=== PATIENT | female | born 1960 | race Caucasian/White ===

== ENCOUNTER 2017-07-29 12:33 | Emergency (ER) | payer BC ==
--- OUTSIDE RECORDS SUMMARY | 2017-07-29 17:35 | XMS REPORT ---
:1960 External Reference #:[id number] Author Organization [employer] [facility] Address [address] [place] [address] Phone [phone] Care Team Providers Name Role Phone Tai Selma Primary Care Physician Unavailable Payers Type Date Identification Numbers Payment Provider Subscriber Commercial Effective: Policy Number: Angeline Norton 2010 [id number] [facility] Expires: 2012 PayID: [id number] [address] [address] [place] [address] Medigap Part B Effective: Policy Number: Angeline Norton 2012 [id number] [facility] PayID: [id number] [address] [address] [place] [address] Problems Date Description Provider Status Onset: 10/03/2011 Vaginitis and vulvovaginitis Makenzie Traore NP Active Onset: 10/03/2011 Vulval intraepithelial neoplasia grade Marsha Bello MD Active 1 Onset: 10/03/2011 Genital warts Marsha Bello MD Active Family History Date Family Member(s) Problem(s) Comments : Father due to lymphoma (2006) Mother Breast Cancer diagnosed approx 65, now 83yo (2018) Mother Arthritis Mother Hypertension Mother Hypercholesterolemia Number of Children 1 First Daughter A&W Number of Siblings Siblings: 1 First Brother Colon Cancer diagnosed at age 45 First Brother Rectal Cancer First Brother Covarrubias Syndrome Paternal Grandfather due to Unknown Causes () Paternal Grandmother due to Unknown Causes () Maternal Grandfather due to Unknown Causes () Maternal Grandmother due to Unknown Causes () Paternal Aunts Ovarian Cancer Social History Type Date Description Comments Education Highest level of education completed is a master's degree Marital Status Patient is Living Situation Lives with spouse and daughter Pets There are no pets in the home Occupation [employer] Cigarette Use Never smoked cigarettes Alcohol Drinks alcohol occasionally Smoking Patient has never smoked Drug Use Denies drug use Daily Caffeine Drinks on average 1 cup of coffee a day Exercise Type/Frequency Current Exercises sporadically Seat Belt/Car Seat Always uses a seat belt Currently Active The patient is currently sexually active Contraceptive Methods Does not currently use any method of control Allergies, Adverse Reactions, Alerts Date Description Reaction Status Severity Comments 09/02/2008 Sulfa active 04/26/2011 Compazine active 11/22/2011 Flagyl active Medications Medication Date Status Form Strength Qnty SIG Indications Ordering Provider Imiquimod 04/18 Active Cream 5% 72uni apply to ts area 3x Ace, per week for 12 weeks Vagifem 07/10 Active Tablets 10mcg 24tab one tab s per Ace vagina every night at bedtime 2x/week Lansoprazole 08/22 Active Suspension 30mg Varn Selma Dexilant 03/30 Active 60mg MD Ace Xyzal Active 5mg Unknown /0000 Mucinex Active 1200mg Unknown / Atenolol Active 25mg 1 po bid Unknown / Losartan Potassium Active Tablets 100mg 1 po qd Unknown / Qvar Active 80mcg Unknown /0000 Dymista Active Unknown /0000 Fluvoxamine Active 50mg Unknown Maleate /0000 Baby Aspirin Active 81mg Unknown /0000 Alprazolam Active .25mg Unknown / Spiriva Respimat Active Unknown /0000 Symbicort Active Aerosol 160-4.5mc 2 puff by Unknown /0000 g/Act mouth twice a day Vitamin D3 Super Active Capsules 2000Unit Unknown Strength /0000 Biotin Active Capsules 5000mcg once Unknown /0000 daily Coq10 Active Unknown /0000 Flax Seed Oil Active Unknown /0000 Vitamin B12 Active Tablets ER 1000mcg 1 by Unknown /0000 mouth every day Atorvastatin Active Unknown Calcium 0000 Hydrochlorothiazid Active Unknown e /0000 Potassium Active Unknown /0000 Fluconazole 02/16 Hx Tablets 150mg 2tabs 1 tablet by mouth, Sean, - repeat in [facility] 02/21 2 days needed Diflucan 06/26 Hx Tablets 100mg 28tab take 1 s tablet by Ace, - mouth two 07/25 times day for 14 days Diflucan 05/13 Hx Tablets 150mg 2tabs take 1 tab. now, Ace, - if 06/26 signs/sym ptoms not resolved in 72 hours, repeat dose Nystatin/Triamcino 05/13 Hx Cream 775400-6. 15gms use tid Rodrigo Dumont 1Unit/GM- to Shekhar, - % affected M.D. 06/26 area pr Flagyl 10/05 Hx Tablets 500mg 14tab 1 po bid s x 7 days Ace, - 11/21 Diflucan 10/03 Hx Tablets 100mg 6tabs take 2 tabs now. Ace, - take 1 11/21 tab qd for 4 days Symbicort 08/22 Hx Aerosol 160-4.5mc Varn g/Act Selma - 05/28 Diflucan 08/22 Hx Tablets 150mg 2tabs take 1 tab. now, Ace, - if 10/02 signs/sym ptoms not resolved in 72 hours, repeat dose Nystatin/Triamcino 08/22 Hx Cream 371240-5. 15gms use tid Marsha 1Unit/GM- to Ace, - % affected 05/28 area pr Tramadol HCL 03/30 Hx Tablets 50mg as needed Ace, - 05/28 Kariva 03/30 Hx Tablets 0.15-0.02 84tab take 1 /0.01 mg s tablet by Ace, - (2 mouth 05/28 once daily Aldara 09/07 Hx Cream 5% 12uni Apply To ts Area 3X Real Bello Per Week 05/28 At Night , Wash Off In Am Aciphex 09/[address] 20mg Marsha Real Bello MD 07/24 Alvesco / Hx Unknown / - 06/18 Nasonex / Hx Unknown / - 05/28 HCTZ Hx 25mg - 07/05 Potassimin Hx 16Meq - 07/05 Prevacid / Hx Unknown / - 06/18 Lunesta Hx Tablets 1mg - 07/29 Luvox CR Hx Caps ER 50mg 24HR - 06/26 Co Q-10 Maximum Hx Unknown Strength - 08/28 Symbicort 00/ Hx - 07/19 Fluconazole 00 Hx 150mg Unknown - 01/25 Gabapentin Hx Unknown - 08/28 Medications Administered in Office Medication Date Status Form Strength Qnty SIG Indications Ordering Provider PT SCRN Tbco Administered Injection Dvorah Id as Non User 018 Garry Damon Vital Signs Date Vital Result Comment 07/05/2017 BP Systolic 120 mmHg BP Diastolic 80 mmHg Height 63 inches 5'3" Weight 172.00 lb BMI (Body Mass Index) 30.5 kg/m2 Last Menstrual Period 5336854 3 Parity 1 08/28/2016 BP Systolic 126 mmHg BP Diastolic 78 mmHg Height 63 inches 5'3" Weight 171.00 lb BMI (Body Mass Index) 30.3 kg/m2 Last Menstrual Period 0616020 3 Parity 1 05/30/2016 BP Systolic 130 mmHg BP Diastolic 78 mmHg Height 63 inches 5'3" Weight 164.00 lb BMI (Body Mass Index) 29.0 kg/m2 Last Menstrual Period 0934464 3 Parity 1 05/16/2016 BP Systolic 126 mmHg BP Diastolic 82 mmHg Height 63 inches 5'3" Weight 162.00 lb BMI (Body Mass Index) 28.7 kg/m2 Last Menstrual Period 9623546 3 Parity 1 04/18/2016 BP Systolic 118 mmHg BP Diastolic 72 mmHg Height 63 inches 5'3" Weight 159.00 lb BMI (Body Mass Index) 28.2 kg/m2 Last Menstrual Period 9768362 3 Parity 1 08/17/2015 BP Systolic 126 mmHg BP Diastolic 74 mmHg Height 63 inches 5'3" Weight 187.00 lb BMI (Body Mass Index) 33.1 kg/m2 Last Menstrual Period 9394790 3 Parity 1 01/25/2015 BP Systolic 124 mmHg BP Diastolic 78 mmHg Height 63 inches 5'3" Weight 182.00 lb BMI (Body Mass Index) 32.2 kg/m2 Last Menstrual Period 8529903 3 Parity 1 10/13/2014 BP Systolic 124 mmHg BP Diastolic 76 mmHg Height 63 inches 5'3" Last Menstrual Period 2791033 3 Parity 1 07/10/2014 BP Systolic 118 mmHg BP Diastolic 76 mmHg Height 63 inches 5'3" Weight 181.00 lb BMI (Body Mass Index) 32.1 kg/m2 Last Menstrual Period 8993767 3 Parity 1 01/05/2014 BP Systolic 112 mmHg BP Diastolic 76 mmHg Height 63 inches 5'3" Weight 170.00 lb BMI (Body Mass Index) 30.1 kg/m2 Last Menstrual Period 2494889 3 Parity 1 12/22/2013 BP Systolic 124 mmHg BP Diastolic 86 mmHg Height 63 inches 5'3" Weight 168.00 lb BMI (Body Mass Index) 29.8 kg/m2 Last Menstrual Period 3562724 3 Parity 1 06/26/2013 BP Systolic 118 mmHg BP Diastolic 74 mmHg Height 63 inches 5'3" Weight 163.00 lb BMI (Body Mass Index) 28.9 kg/m2 Last Menstrual Period 1331701 3 Parity 1 05/13/2013 BP Systolic 122 mmHg BP Diastolic 80 mmHg Height 64.5 inches 5'4.50" Weight 166.00 lb BMI (Body Mass Index) 28.1 kg/m2 Last Menstrual Period 0480338 3 Parity 1 04/29/2013 BP Systolic 118 mmHg BP Diastolic 74 mmHg Height 64.5 inches 5'4.50" Weight 166.00 lb BMI (Body Mass Index) 28.1 kg/m2 Last Menstrual Period 0080767 3 Parity 1 02/06/2013 BP Systolic 130 mmHg BP Diastolic 84 mmHg Height 64.5 inches 5'4.50" Weight 173.00 lb BMI (Body Mass Index) 29.2 kg/m2 3 Parity 1 05/28/2012 BP Systolic 120 mmHg BP Diastolic 68 mmHg Height 64.5 inches 5'4.50" Weight 181.00 lb BMI (Body Mass Index) 30.6 kg/m2 Last Menstrual Period 7446059 3 Parity 1 11/22/2011 BP Systolic 112 mmHg BP Diastolic 72 mmHg Height 62.5 inches 5'2.50" Weight 170.00 lb BMI (Body Mass Index) 30.6 kg/m2 Last Menstrual Period 1655905 3 Parity 1 10/04/2011 BP Systolic 120 mmHg BP Diastolic 66 mmHg Height 62.5 inches 5'2.50" Weight 173.00 lb BMI (Body Mass Index) 31.1 kg/m2 Last Menstrual Period 0229121 08/23/2011 BP Systolic 126 mmHg BP Diastolic 78 mmHg Height 62.5 inches 5'2.50" Weight 171.00 lb BMI (Body Mass Index) 30.8 kg/m2 04/26/2011 BP Systolic 140 mmHg BP Diastolic 90 mmHg Respiratory Rate 62.5 /min Height 174 inches 14'6" Last Menstrual Period 9532314 3 Parity 1 09/14/2010 BP Systolic 120 mmHg BP Diastolic 70 mmHg Height 63.5 inches 5'3.50" Weight 181.00 lb BMI (Body Mass Index) 31.6 kg/m2 08/03/2010 BP Systolic 140 mmHg BP Diastolic 80 mmHg Height 63.5 inches 5'3.50" Weight 180.00 lb BMI (Body Mass Index) 31.4 kg/m2 Last Menstrual Period 3202063 3 Parity 1 03/30/2010 BP Systolic 120 mmHg BP Diastolic 80 mmHg Height 63.5 inches 5'3.50" Weight 176.00 lb BMI (Body Mass Index) 30.7 kg/m2 Last Menstrual Period 4258879 04/29/2009 BP Systolic 130 mmHg BP Diastolic 70 mmHg Height 63.5 inches 5'3.50" Weight 180.00 lb BMI (Body Mass Index) 31.4 kg/m2 Last Menstrual Period 0106193 3 Parity 1 12/08/2008 BP Systolic 132 mmHg BP Diastolic 78 mmHg Weight 181.00 lb 09/02/2008 BP Systolic 144 mmHg BP Diastolic 88 mmHg Height 63.75 inches 5'3.75" Weight 182.00 lb BMI (Body Mass Index) 31.5 kg/m2 Last Menstrual Period 2922067 3 Parity 1 Results Test Date Test Result H/L Range Note Laboratory test finding 08/28/2016 Cytology SEE RESULT BELOW 1 Human Papilloma Virus Rna Negative Negative 2 Laboratory test finding 05/16/2016 Surgical Pathology SEE RESULT BELOW 3 Laboratory test finding 08/17/2015 Cytology SEE RESULT BELOW 4 Human Papilloma Virus Rna Negative Negative 5 Laboratory test finding 07/10/2014 Cytology RUN DATE: <SEE NOTE&gt ; 6 Human Papilloma Virus Rna Negative Negative 7 Laboratory test finding 01/05/2014 Surgical Pathology RUN DATE: <SEE NOTE> Laboratory test finding 06/26/2013 Genital Culture (SEE NOTE) 9 Laboratory test finding 06/26/2013 Cytology RUN DATE: <SEE NOTE> Laboratory test finding 02/10/2013 Clotest (SEE NOTE) 11 Laboratory test finding 05/28/2012 Follicle Stimulating 59.99 MIU/ML 12 Hormone Laboratory test finding 05/28/2012 Cytology RUN DATE: <SEE NOTE> Laboratory test finding 10/04/2011 Genital Culture 14 <SEE NOTE> Laboratory test finding 04/26/2011 Cytology 15 <SEE NOTE> Laboratory test finding 04/22/2010 FSH 8.37 MIU/ML 16 Laboratory test finding 03/30/2010 Cytology 17 <SEE NOTE> Laboratory test finding 04/29/2009 Surgical Pathology 18 <SEE NOTE> Laboratory test finding 12/08/2008 Surgical Pathology 19 <SEE NOTE> Laboratory test finding 09/02/2008 Surgical Pathology 20 <SEE NOTE> 1 SEE RESULT BELOW Name: DANIELLE NORTON : [address]: Marsha Bello MD Acct: [id number] Unit: [id number] AGE: 55 Location: [facility] Re08/28/16 SEX: F Status: REG REF SPEC: [id number] CHARITY: 08/28/16-[address]: Marsha Bello MD REQ: [id number] RECD: 08/28/16 STATUS: SOUT _ ORDERED: IMAGE ANALYSIS, HPV/Thin Prep COMMENTS: [id number] FINAL DIAGNOSIS Negative for Intraepithelial lesion or Malignancy A. Ectocervical/Endocervical Specimen Adequacy: Satisfactory of evaluation Transformation zone component not identified Patient Information: HPV: High risk HPV RNA testing regardless of pap results. Actual Specimen Date: 08/28/16 Last Menstrual Date: 06/18/13 Date of Last Specimen: 08/17/15 Post Menopausal?: Y Date Time Test Result Flag (u) Normal Range 08/28/16 1306 HPV RNA Negative Negative The high-risk HPV types detected by the assay include: 16, 18, 31, 33, 35, 39, 45, 51, 52, 56, 58, 59, 66, and 68. Signed (signature on file) SHABBIR Roberts (ASCP) 08/31 0800 This Pap test was evaluated with the assistance of the [employer] Test Imaging System. Due to cytologic findings at the edge banding off bearer microscope, comprehensive manual rescreening by a Label Remover may be required. The Pap Smear is a screening test designed to aid in the detection of premalignant and malignant conditions of the uterine cervix. It is not a diagnostic procedure and should not be used as the sole means of detecting cervical cancer. Both false- positive and false- negative reports do occur. Depending on your risk status, a Pap smear should be obtained and evaluated every 1-3 years. END OF REPORT * ML=Testing performed at Main Lab DEPARTMENT OF PATHOLOGY, [address] [place] [address] Williams Winter M.D. Director [facility] # [id number] 2 The high-risk HPV types detected by the assay include: 16, 18, 31, 33, 35, 39, 45, 51, 52, 56, 58, 59, 66, and 68. 3 SEE RESULT BELOW Name: DANIELLE NORTON : [address]: Marsha Bello MD Acct: [id number] Unit: [id number] AGE: 55 Location: [facility] Re05/16/16 SEX: F Status: REG REF SPEC: [id number] CHARITY: 05/16/16-1325 [facility] DR: Marsha Bello MD REQ: [id number] RECD: 05/16/16 STATUS: SOUT _ ORDERED: LEVEL IV COMMENTS: [id number] FINAL DIAGNOSIS Skin, labia, biopsy: -- Condyloma. PRE-OPERATIVE DIAGNOSIS Genital wart GROSS DESCRIPTION The specimen is received in formalin labeled, Lesion Biopsy, and consists of a 0.6 x 0.4 x 0.4 cm river-quintana irregular focally papillary and hairbearing skin fragment. The specimen is inked, bisected and submitted entirely in one cassette. Signed (signature on file) Williams Winter MD 1049 END OF REPORT * ML=Testing performed at Main Lab DEPARTMENT OF PATHOLOGY, [address] [place] [address] Williams Winter M.D. Director [facility] # [id number] 4 SEE RESULT BELOW Name: DANIELLE NORTON : [address]: Marsha Bello MD Acct: [id number] Unit: [id number] AGE: 54 Location: [facility] Re08/17/15 SEX: F Status: REG REF SPEC: [id number] CHARITY: 08/17/15-0951 [facility] DR: Marsha Bello MD REQ: [id number] RECD: 08/17/15 STATUS: SOUT _ ORDERED: IMAGE ANALYSIS, HPV/Thin Prep FINAL DIAGNOSIS Negative for Intraepithelial lesion or Malignancy A. Ectocervical/Endocervical Specimen Adequacy: Satisfactory of evaluation Transformation zone component not identified Patient Information: HPV: High risk HPV RNA testing regardless of pap results. Actual Specimen Date: 08/17/15 Last Menstrual Date: 12/10/13 Date of Last Specimen: 07/10/14 Post Menopausal?: Y Date Time Test Result Flag (u) Normal Range 08/17/15 0951 HPV RNA Negative Negative The high-risk HPV types detected by the assay include: 16, 18, 31, 33, 35, 39, 45, 51, 52, 56, 58, 59, 66, and 68. Signed (signature on file) SHABBIR Sandoval(ASCP) 08/17 1321 This Pap test was evaluated with the assistance of the [employer] Test Imaging System. Due to cytologic findings at the edge banding off bearer microscope, comprehensive manual rescreening by a Label Remover may be required. The Pap Smear is a screening test designed to aid in the detection of premalignant and malignant conditions of the uterine cervix. It is not a diagnostic procedure and should not be used as the sole means of detecting cervical cancer. Both false- positive and false- negative reports do occur. Depending on your risk status, a Pap smear should be obtained and evaluated every 1-3 years. END OF REPORT * ML=Testing performed at [facility] Lab DEPARTMENT OF PATHOLOGY, [address] [place] [address] Williams Winter M.D. Director [facility] # [id number] 5 The high-risk HPV types detected by the assay include: 16, 18, 31, 33, 35, 39, 45, 51, 52, 56, 58, 59, 66, and 68. 6 RUN DATE: 07/14/14 [facility] LAB LIVE PAGE 1 RUN TIME: [address] [place], [place] [address] Specimen Inquiry Name: DANIELLE NORTON : [address]: Marsha Bello MD Acct: [id number] Unit: [id number] AGE: 53 Location: [facility] Re07/10/14 SEX: F Status: REG REF SPEC: [id number] CHARITY: 07/10/14-1516 [facility] DR: Marsha Bello MD REQ: [id number] RECD: 07/13/14-492 STATUS: SOUT _ ORDERED: IMAGE ANALYSIS, HPV/Thin Prep FINAL DIAGNOSIS Negative for Intraepithelial lesion or Malignancy A. Ectocervical/Endocervical Specimen Adequacy: Satisfactory of evaluation Transformation zone component identified Patient Information: HPV: High risk HPV RNA testing regardless of pap results. Actual Specimen Date: 07/10/14 Last Menstrual Date: 12/10/13 Date of Last Specimen: 06/26/13 Date Time Test Result Flag (u) Normal Range 07/10/14 1516 HPV RNA Negative Negative The high-risk HPV types detected by the assay include: 16, 18, 31, 33, 35, 39, 45, 51, 52, 56, 58, 59, 66, and 68. Signed (signature on file) SHABBIR Brunner(ASCP) 1307 This Pap test was evaluated with the assistance of the [employer] Test Imaging System. Due to cytologic findings at the edge banding off bearer microscope, comprehensive manual rescreening by a Label Remover may be required. The Pap Smear is a screening test designed to aid in the detection of premalignant and malignant conditions of the uterine cervix. It is not a diagnostic procedure and should not be used as the sole means of detecting cervical cancer. Both false- positive and false- negative reports do occur. Depending on your risk status, a Pap smear should be obtained and evaluated every 1-3 years. END OF REPORT * ML=Testing performed at Main Lab DEPARTMENT OF PATHOLOGY, [address] [place] [address] Williams Winter M.D. Director [facility] # [id number] 7 The high-risk HPV types detected by the assay include: 16, 18, 31, 33, 35, 39, 45, 51, 52, 56, 58, 59, 66, and 68. 8 RUN DATE: 01/07/14 [facility] [place] [facility] LAB LIVE PAGE 1 RUN TIME: [address] [place] [address] Specimen Inquiry Name: DANIELLE NORTON : [address]: Marsha Bello MD Acct: [id number] Unit: [id number] AGE: 53 Location: [facility] Re01/05/14 SEX: F Status: REG REF SPEC: [id number] CHARITY: 01/05/14-0935 [facility] DR: Marsha Bello MD REQ: [id number] RECD: 01/05/14 STATUS: SOUT _ ORDERED: LEVEL IV FINAL DIAGNOSIS Uterus, endometrium, biopsy: A. Inactive endometrial mucosa with focal tubal metaplasia and stromal breakdown. B. No evidence of hyperplasia or neoplasia. PRE-OPERATIVE DIAGNOSIS Dysfunctional uterine bleeding GROSS DESCRIPTION The specimen is received in formalin labeled ELVIS Maza and consists of a 1.0 x 0.8 x 0.3 cm. aggregate of predominantly river-brown mucus mixed with scant river soft tissue fragments. The specimen is filtered and submitted entirely, one cassette. Signed (signature on file) Gwendolyn Pablo MD 1545 END OF REPORT * ML=Testing performed at Main Lab DEPARTMENT OF PATHOLOGY, [facility] [employer] [place] [address] Williams Winter M.D. Director [facility] # [id number] RUN DATE: 06/28/13 [facility] [place] [facility] LAB LIVE PAGE 1 RUN TIME: [address] [place] [address] Specimen Inquiry Name: DANIELLE NORTON : [address]: Marsha Bello MD Acct: [id number] Unit: [id number] AGE: 52 Location: [facility] Re06/26/13 SEX: F Status: REG REF SPEC: [id number] CHARITY: 06/26/13-1153 [facility] DR: Marsha Bello MD REQ: [id number] RECD: 06/26/13 STATUS: COMP _ SOURCE: VAGINAL SPDESC: ORDERED: Genital Culture QUERIES: Medent Number [id number] Procedure Result Verified Site Genital Culture Final 06/28/13- 1056 ML Organism 1 NORMAL SIXTO Quantity 2+ END OF REPORT * ML=Testing performed at Main Lab DEPARTMENT OF PATHOLOGY, [facility] [employer] [place], [place] [address] Williams Winter M.D. Director [facility] Permit #[id number] 10 RUN DATE: 06/27/13 [facility] [place] [facility] LAB LIVE PAGE 1 RUN TIME: 1320 [facility] [employer] [place], [place] [address] Specimen Inquiry Name: DANIELLE NORTON : [address]: Marsha Bello MD Acct: [id number] Unit: [id number] AGE: 52 Location: [facility] Re06/26/13 SEX: F Status: REG REF SPEC: [id number] CHARITY: 06/26/13-1226 [facility] DR: Marsha Bello MD REQ: [id number] RECD: 06/26/13-9709 STATUS: SOUT _ ORDERED: IMAGE ANALYSIS FINAL DIAGNOSIS Negative for Intraepithelial lesion or Malignancy A. Ectocervical/Endocervical Specimen Adequacy: Satisfactory of evaluation Transformation zone component identified Patient Information: HPV: Thin Layer Pap Test w/reflex to high risk HPV DNA testing when ASCUS Actual Specimen Date: 06/26/13 Last Menstrual Date: 12/12/12 Date of Last Specimen: 05/28/12 Signed (signature on file) SHABBIR Roberts (ASCP) 06/27 1320 This Pap test was evaluated with the assistance of the [employer] Test Imaging System. Due to cytologic findings at the edge banding off bearer microscope, comprehensive manual rescreening by a Label Remover may be required. The Pap Smear is a screening test designed to aid in the detection of premalignant and malignant conditions of the uterine cervix. It is not a diagnostic procedure and should not be used as the sole means of detecting cervical cancer. Both false- positive and false- negative reports do occur. Depending on your risk status, a Pap smear shoudl be obtained and evaluated every 1-3 years. END OF REPORT * ML=Testing performed at Main Lab DEPARTMENT OF PATHOLOGY, [facility] [employer] [place] [address] Williams Winter M.D. Director [facility] Permit #[id number] 11 RUN DATE: 02/11/13 [facility] [place] [facility] LAB LIVE PAGE 1 RUN TIME: 0839 [facility] [employer] [place], [place] [address] Specimen Inquiry Name: IWONA NORTONJorje Dial : [address]: Ty Tucker MD Acct: [id number] Unit: [id number] AGE: 52 Location: ENDO Re02/10/13 SEX: F Status: REG REF SPEC: [id number] CHARITY: 02/10/13-[address]: Ty Tucker MD REQ: [id number] RECD: 02/10/13-3 STATUS: SHAWN THOMPSON DR: Marsha Lujan [employer] _ SOURCE: NELY DAVIS [facility]: ORDERED: Clotest Procedure Result Verified Site Clotest Final 02/11/13- 837 ML Clotest Negative END OF REPORT * ML=Testing performed at Main Lab DEPARTMENT OF PATHOLOGY, [facility] [employer] [place], [place] [address] Williams Winter M.D. Director [facility] Permit #[id number] 12 Normally menstruating females - Follicular phase 3 - 9 - Mid-cycle peak 4 - 23 - Luteal phase 1 - 6 Postmenopausal females 16 - 114 13 RUN DATE: 05/29/12 [facility] [place] [facility] LAB LIVE PAGE 1 RUN TIME: 7448 [facility] [employer] [place], [place] [address] Specimen Inquiry Name: DANIELLE NORTON : [address]: Marsha Bello MD Acct: [id number] Unit: [id number] AGE: 51 Location: [facility] Re05/28/12 SEX: F Status: REG REF SPEC: [id number] CHARITY: 05/28/[address]: Marsha Bello MD REQ: [id number] RECD: 05/29/12 STATUS: SOUT _ ORDERED: IMAGE ANALYSIS Negative for Intraepithelial lesion or Malignancy A. Ectocervical/Endocervical Specimen Adequacy: Satisfactory of evaluation Transformation zone component identified Patient Information: HPV: Thin Layer Pap Test w/reflex to high risk HPV DNA testing when ASCUS Actual Specimen Date: 05/28/12 Last Menstrual Date: 12/20/11 Date of Last Specimen: 04/26/11 ?: N Post Menopausal?: N Hysterectomy?: N Previous Abnormal Pap Smears?:Y If Yes, enter Diagnosis: Atypical Squamous cells of uncertain significance. HPV Lo risk Signed (signature on file) SHABBIR Roberts (ASCP) 05/29 2874 This Pap test was evaluated with the assistance of the [employer] Test Imaging System. Due to cytologic findings at the edge banding off bearer microscope, comprehensive manual rescreening by a Label Remover may be required. The Pap Smear is a screening test designed to aid in the detection of premalignant and malignant conditions of the uterine cervix. It is not a diagnostic procedure and should not be used as the sole means of detecting cervical cancer. Both false- positive and false- negative reports do occur. Depending on your risk status, a Pap smear shoudl be obtained and evaluated every 1-3 years. END OF REPORT * ML=Testing performed at Main Lab DEPARTMENT OF PATHOLOGY, [address] [place] [address] Williams Winter M.D. Director [facility] Permit #[id number] RUN DATE: 10/06/11 [facility] NMI LIVE PAGE 1 RUN TIME: 1005 Specimen Inquiry RUN USER: INTERFACE Name: NORTONDANIELLEJorje Aj#: [id number] Status: REG REF Re10/04/11 Age/Sex: 51/F Unit#: [id number] Location: [facility] : 64 SPEC #: [id number] CHARITY: 10/04/11 STATUS: COMP REQ #: [id number] RECD: 10/04/11 [facility] DR: León OSMAN,Makenzie SOURCE: GENITAL ENTR: 10/04/[address]: SPDES: SeeComment ORDERED: GENITAL CULTURE COMMENTS: Specimen Description: vaginal QUERIES: [employer] MEDENT REQUISITION # [id number] ACT WKST: B 10/06/11 #1 Procedure Result Verified Site > GENITAL CULTURE Final -1005 ML Organism 1 PRESUMPTIVE KIMMY. VAGINALIS QUANTITY MANY Organism 2 YEAST QUANTITY FEW Organism 3 NORMAL SIXTO QUANTITY MANY - [facility] Permit #[id number] [address] [place] [id number] DEPARTMENT OF PATHOLOGY, [address] [place] [id number] [facility] Permit #[id number] Garry Bland M.D. Joint Finisher 15 ---- RUN DATE: 04/27/11 [facility] NMI LIVE PAGE 1 RUN TIME: 1136 Specimen Inquiry RUN USER: INTERFACE -- Name: DANIELLE NORTON Status: REG REF Re04/26/11 Age/Sex: 50/F Unit#: [id number] Location: [facility] : 64 -- Specimen: [id number] SOUT Spec Date: 04/26/[address]: Marsha cheng MD Spec Type: CYTOLOGY Received: 04/26/11-1420 Copies to: SOURCE ECTOCERVICAL/ENDOCERVICAL Thin Prep with Reflex HPV Test PATIENT INFORMATION ACTUAL COLLECTION DATE: 04/26/11 ? No POST MENOPAUSAL? No LAST MENSTRUAL PERIOD: 04/13/10 DATE OF PRIOR SPECIMEN: 03/30/10 ADEQUACY OF SPECIMEN Satisfactory for evaluation * Transformation zone component identified * DIAGNOSIS NEGATIVE FOR INTRAEPITHELIAL LESION OR MALIGNANCY * This Pap test was evaluated with the assistance of the ThinPrep Pap Test Imaging System. The Pap Smear is a screening test designed to aid in the detection of premalign ant and malignant conditions of the uterine cervix. It is not a diagnostic procedure a nd should not be used as the sole means of detecting cervical cancer. Both false- positiv e and false-negative reports do occur. Depending on your risk status, a Pap smear michelle uld be obtained and evaluated every one to three years. Initial evaluation performed by Jayro ZUNIGA(ASCP) 04/27/11 Final Interpretation electronically signed by: Jayro ZUNIGA(ASCP) 04/27/11 5126 -- -- DEPARTMENT OF PATHOLOGY, [address] [place] [address] [facility] Permit #[id number] Garry Bland M.D. Nps Dir augusteor -- 16 NORMAL RANGE MALES 1 - 20 NORMALLY MENSTRUATING FEMALES - Follicular Phase 3 - 9 - Mid-Cycle Peak 4 - 23 - Luteal Phase 1 - 6 POSTMENOPAUSAL FEMALES 16 - 114 . 17 ---- RUN DATE: 04/04/10 [facility] NMI LIVE PAGE 1 RUN TIME: 825 Specimen Inquiry RUN USER: INTERFACE -- Name: IWONA NORTONJorje Dial Status: REG REF Re03/30/10 Age/Sex: 49/F Unit#: [id number] Location: [facility] : 64 -- Specimen: [id number] SOUT Spec Date: 03/30/[address]: Marsha cheng MD Spec Type: CYTOLOGY Received: 03/31/10-0856 Copies to: SOURCE ECTOCERVICAL/ENDOCERVICAL Thin Prep with Reflex HPV Test PATIENT INFORMATION ACTUAL COLLECTION DATE: 03/30/10 ? No LAST MENSTRUAL PERIOD: 03/24/10 ADEQUACY OF SPECIMEN Satisfactory for evaluation * Transformation zone component identified * DIAGNOSIS EPITHELIAL CELL ABNORMALITIES * Squamous cell * Atypical squamous cells * Of undetermined significance (ASC-US) * NOTE Specimen sent to [facility] in [place], [place] on 03/31/10 by DB at 1310. Results will be reported separately in an addendum. ADDENDUM Addendum #1 Entered: 04/04/10 Jet Human Papilloma Virus test results received with preparation and diagnosis completed by [facility], [place], [place]. Results: NEGATIVE High Risk (for types 16, 18, 31, 33, 35, 39, 45, 51, 52, 56, 58, 59, 68) This test was developed and its performance characteristics determined by Laboratory Medicine and Pathology, [facility], [place], [place]. It has not -- DEPARTMENT OF PATHOLOGY, [address] [place] [address] [facility] Permit #[id number] Garry Bland M.D. Nps Dir abdullahi -- -- RUN DATE: 04/04/10 [facility] NMI LIVE PAGE 2 RUN TIME: 825 Specimen Inquiry RUN USER: INTERFACE -- Name: DANIELLE NORTON Status: REG REF Re03/30/10 Age/Sex: 49/F Unit#: [id number] Location: [facility] : 64 -- -- CONTINUED -- ADDENDUM (Continued) been cleared or approved by the U.S. Food and Drug Administration. Test Performed by: [facility] Dpt of lab Med and Pathology [address] [place] [address] Wire Communications Engineer: Reginaldo Reyes III, M.D. Original hard copy report from [facility] is available upon request by calling Pathology at [phone]. Addendum Review Jayro ZUNIGA([facility]) 04/04/10 -- This Pap test was evaluated with the assistance of the ThinPrep Pap Test Imaging System. Due to cytologic findings at the edge banding off bearer microscope, comprehensive manual rescreening by a Label Remover was required. The Pap Smear is a screening test designed to aid in the detection of premalign ant and malignant conditions of the uterine cervix. It is not a diagnostic procedure a nd should not be used as the sole means of detecting cervical cancer. Both false- positiv e and false-negative reports do occur. Depending on your risk status, a Pap smear michelle uld be obtained and evaluated every one to three years. Initial evaluation performed by Roya RODRIGUEZ(ASCP) 03/31/10 Final Interpretation electronically signed by: CAROLIN ROSE 03/31/10 1439 -- -- DEPARTMENT OF PATHOLOGY, [address] [place] [address] [facility] Permit #[id number] Williams Winter M.D. Director Carolin Rose M.D. Nps abdullahi -- 18 ---- RUN DATE: 05/03/09 [facility] NMI LIVE PAGE 1 RUN TIME: 1259 Specimen Inquiry RUN USER: INTERFACE -- Name: DANIELLE NORTON Status: REG REF Re04/29/09 Age/Sex: 48/F Unit#: [id number] Location: [facility] : 64 -- Specimen: [id number] SOUT Spec Date: 04/29/[address]: Hilary chaves MD Spec Type: SURGICAL P Received: 04/30/09 Copies to: CYTOLOGY SPECIMEN VULVAR BIOPSY HISTORY PRE-OP DIAGNOSIS: TRINI I GROSS DESCRIPTION The specimen is received in formalin labelled Danielle Norton, Vulvar Biopsy, and consists of an irregular fragment of dark brown tissue measuring 0.6 x 0.5 x 0.4 cm. Submitted entirely, one cassette. DIAGNOSIS Vulva, biopsy: A) Low grade squamous intraepithelial lesion (TRINI I, condyloma). B) Background changes indicative of lichen simplex chronicus (see comment). COMMENT The skin fragment demonstrates focal areas of epidermal disorganization with koilocytic atypia indicative of HPV infection (condyloma). Superimposed on these changes is a variable epidermal hyperplasia with elongation of rete ridges and associated hyperkeratosis suggestive of lichen simplex chronicus (secondary to chronic irritation). Signed Electronically by: WILLIAMS WINTER MD 05/03/09 1259 -- -- DEPARTMENT OF PATHOLOGY, [address] [place] [address] [facility] Permit #[id number] Williams Winter M.D. Director Carolin Rose M.D. Nps Dir augusteor -- 19 ---- RUN DATE: 12/10/08 [facility] NMI LIVE PAGE 1 RUN TIME: 1229 Specimen Inquiry RUN USER: INTERFACE -- Name: DANIELLE NORTON Jayro Status: REG REF Re12/08/08 Age/Sex: 48/F Unit#: [id number] Location: [facility] : 64 -- Specimen: [id number] SOUT Spec Date: 12/08/[address]: Marsha cheng MD Spec Type: SURGICAL P Received: 12/09/08-1157 Copies to: SPECIMEN RIGHT VULVAR BIOPSY HISTORY PRE-OP DIAGNOSIS: Right vulvar growth GROSS DESCRIPTION The specimen is received in formalin labelled Danielle Norton, Right Vulvar Biopsy, and consists of multiple, river-brown, soft tissue fragments measuring 0.5 x 0.2 x 0.1 cm. Submitted entirely, one cassette. DIAGNOSIS Skin, right vulva, biopsy: A. Lichen simplex chronicus. B. No evidence of HPV effect or neoplasia identified. Signed Electronically by: WILLIAMS WINTER MD 12/10/08 4769 -- -- DEPARTMENT OF PATHOLOGY, [address] [place] [address] [facility] Permit #[id number] Garry Bland M.D. Nps Dir abdullahi -- 20 ---- RUN DATE: 09/04/08 [facility] NMI LIVE PAGE 1 RUN TIME: 1244 Specimen Inquiry RUN USER: INTERFACE -- Name: DANIELLE NORTON Status: REG REF Re09/03/08 Age/Sex: 47/F Unit#: [id number] Location: [facility] : 64 -- Specimen: [id number] [facility] Spec Date: 09/03/[address] [address]: Marsha cheng MD Spec Type: SURGICAL P Received: 09/03/08-1502 Copies to: SPECIMEN VULVAR BIOPSY HISTORY PRE-OP DIAGNOSIS: Vulvar biopsy. GROSS DESCRIPTION Specimen is received in formalin labelled Danielle Norton Vulvar Padmini and consists of a river, soft tissue fragment measuring 0.3 x 0.2 x 0.1 cm. Submitted entirely, one cassette. DIAGNOSIS Skin, vulva, biopsy: A. Lichen simplex chronicus. B. No dysplasia identified. Signed Electronically by: WILLIAMS WINTER MD 09/04/08 1244 -- -- DEPARTMENT OF PATHOLOGY, [address] [place] [address] [facility] Permit #[id number] Williams Winter M.D. Director Carolin Rose M.D. Nps Dir abdullahi -- Procedures Date CPT Code Description Status 09/15/2016 Mammogram Completed 05/16/2016 71892 Biopsy Vulva/Perineum One Lesion Completed 01/05/2014 55496 Echography Pelvic Complete Completed 01/16/2013 Colonoscopy Completed 11/22/2011 54550 Destruction Of Warts <14 Completed 04/29/2009 19241 Biopsy Cervix Completed 04/29/2009 96171 Colposcopy Of The Cervix Inc Upper/Adjacent Vagina Completed 12/08/2008 04162 Colposcopy Of Vagina Or Cervix Completed Encounters Type Date Location Provider CPT E/M Dx Office Visit 07/05/2017 2:00p [facility] Nan Damon M.D. 55834 N64.59 Office Visit 08/28/2016 11:30a [place] [address] Z01.419 Office Visit 05/30/2016 2:15p [place] [address] A63.0 Office Visit 04/18/2016 9:30a [place] [address] Z01.411 Office Visit 08/17/2015 9:30a [place] [address] Z12.4 Z01.419 Office Visit 01/25/2015 10:40a [place] [address] 627.3 Office Visit 10/13/2014 10:00a [place] [address] 627.3 Office Visit 07/10/2014 2:00p [place] [address] V76.2 V72.31 627.3 Office Visit 06/26/2013 11:00a [place] [address] 078.11 V72.31 V76.2 616.10 Office Visit 05/13/2013 8:30a [facility] Makenzie Traore, [employer] 18913 616.10 V76.41 Office Visit 04/29/2013 2:30p [facility] Makenzie Traore, [employer] 53478 078.11 Office Visit 11/22/2011 9:00a [place] [address] 078.11 Office Visit 10/04/2011 9:00a [facility] Makenzie Traore [employer] 16394 616.10 V76.41 Office Visit 08/23/2011 8:40a [place] [address] 616.10 V76.41 Office Visit 04/26/2011 8:30a [place] [address] V76.2 V72.31 624.01 Office Visit 09/14/2010 9:00a [place] [address] 078.11 Office Visit 08/03/2010 10:00a [place] [address] 078.11 Office Visit 03/30/2010 8:30a [place] [address] [place] [address] V76.2 V72.31 624.01 V16.49 Office Visit 04/29/2009 8:40a [facility] Hilary Barry M.D. 49629 624.01 V72.40 Office Visit 09/02/2008 9:00a [place] [address] 624.01 Plan of Care Future Appointment(s):08/20/2017 2:30 pm - Marsha Bello MD at [facility]/05/2017 - Nan Damon M.D.N64.59 Other signs and symptoms in breastComments:Has Annual scheduled 08/2017 Expect it will resolve. If becomes larger/more painful or does not completely resolve would need f/u exam.
[2017-07-29] MEDS ORDERED: Ipratropium 0.5MG/2.5ML NEB* 0.5 MG/2.5 ML NEB.SOLN INH ONE (17:45)
[2017-07-29] MEDS ORDERED: Albuterol 2.5 MG/3 ML NEB.SOL* (0.083%) INH ONE (17:45)
--- NOTE | 2017-07-29 17:46 | UC ---
Respiratory Complaint HPI - HPI Summary HPI Summary: C/O fever, cough, headache, sorethroat, upper body aches. - History of Current Complaint Stated Complaint: ST (TEMP 101) COUGH Time Seen by Provider: 07/29/17 17:39 Hx Obtained From: Patient Hx Last Menstrual Period: none since summer months ?: No Onset/Duration: Sudden Onset, Lasting Days - 1, Worse Since - onset with worsening cough and sore throat Severity Initially: Mild Severity Currently: Moderate Alleviating Factors: Nothing Associated Signs And Symptoms: Positive: Dyspnea, Fever, Chills, Wheezing, URI, Nasal Congestion - Allergies/Home Medications Allergies/Adverse Reactions: Allergies Allergy/AdvReac Type Severity Reaction Status Date / Time clindamycin Allergy Rash Verified 07/29/17 17:56 metronidazole [From Flagyl] Allergy Rash Verified 07/29/17 17:56 Phenothiazines Allergy See Comment Verified 07/29/17 17:56 prochlorperazine Allergy See Comment Verified 07/29/17 17:56 [From Compazine] promethazine Allergy See Comment Verified 07/29/17 17:56 Sulfa (Sulfonamide Allergy Rash Verified 07/29/17 17:56 Antibiotics) Home Medications: Home Medications Estradiol VAGINAL TAB(NF) [Vagifem] 10 mcg VAGINAL SEE INSTRUCTIONS 07/29/17 [ History Confirmed 07/29/17] Hydrochlorothiazide TAB* [Hydrodiuril TAB*] 25 mg PO DAILY 07/29/17 [History Confirmed 07/29/17] Levalbuterol 1.25MG/0.5ML NEB* [Xopenex 1.25 MG/0.5 ML NEB.GONZÁLEZ*] 1.25 mg INH Q4H PRN 07/29/17 [History Confirmed 07/29/17] Methocarbamol 500 mg PO SEE INSTRUCTIONS PRN 07/29/17 [History Confirmed ] Hayden-3/Dha/Epa/Fish Oil [Fish Oil 500 mg Softgel] 1 cap PO DAILY 07/29/17 [ History Confirmed 07/29/17] PMH/Surg Hx/FS Hx/Imm Hx Endocrine History: Diabetes Cardiovascular History: Hypertension Respiratory History: Asthma - Surgical History Surgical History: Yes Surgery Procedure, Year, and Place: 1978,1980 septoplasty. 1997 . 1999 left knee meniscal tear [facility]. TOOTH IMPLANT 2010. 2012 MOHS NOSE- PLASTIC SURG- BIOPSY & REMOVAL OF CANCEROUS CELLS- [facility]. ALSO SAME PROCEDURE ON Lt BREAST. Rt ELBOW - 2015 - Family History Known Family History: Positive: Diabetes - Social History Occupation: Employed Full-time Lives: With Family Alcohol Use: None Substance Use Type: None Smoking Status (MU): Never Smoked Tobacco Have You Smoked in the Last Year: No Review of Systems Constitutional: Fever, Chills, Fatigue ENT: Sore Throat Respiratory: Cough Musculoskeletal: Myalgia Neurological: Headache Is Patient Immunocompromised?: No All Other Systems Reviewed And Are Negative: Yes Physical Exam Triage Information Reviewed: Yes Appearance: No Pain Distress, Well-Nourished, Ill-Appearing Vital Signs Reviewed: Yes Eyes: Positive: Conjunctiva Inflamed - OU ENT: Positive: Pharynx normal, Nasal congestion, TMs normal Neck exam: Normal Respiratory: Positive: Wheezing - expiratory wheezing, mild Cardiovascular Exam: Normal Musculoskeletal Exam: Normal Neurological Exam: Normal Psychological Exam: Normal Skin Exam: Normal Re-Evaluation - Re-Evaluation First Eval Re-Evaluation Time: 18:47 Change: Improved - but still wheezing Respiratory Course/Dx - Differential Dx/Diagnosis Differential Diagnosis/HQI/PQRI: Asthma, Lower Resp Infection, Sinusitis Provider Diagnoses: Acute URI. Asthma with acute exacerbation Discharge - Discharge Plan Condition: Stable Disposition: HOME Prescriptions: predniSONE TAB* [Deltasone TAB*] 20 mg PO DAILY #18 tab Patient Education Materials: Asthma (ED), Prednisone (By mouth) Referrals: Selma Lujan NP [Primary Care Provider] -
[2017-07-29 18:11] VITALS: BP 107/64
[2017-07-29] MEDS ORDERED: predniSONE TAB* 20 MG PO ONE (18:48)
== END 2017-07-29 19:03 | disposition home or self-care (01) ==
LOC: UCCORT 12:33
DX: J06.9 Acute upper respiratory infection, unspecified (principal); J45.901 Unspecified asthma with (acute) exacerbation; I10 Essential (primary) hypertension
CPT/HCPCS: 87502; 99213; G0463; J7512; J7644